=== PATIENT | female | born 1940 | race Caucasian/White ===

== ENCOUNTER 2018-06-02 08:30 | Day surgery (SDC) | payer MEDICARE, OTHER ==
[~2018-06-02] VITALS: Ht 157.5 cm; Wt 91.2 kg
[~2018-06-02 08:30] MED LIST: ACET500 PO; ALBU90OI; ALBU90OI6 INH; ALLO300 PO; AMIO200; AMLO5 PO; ATEN50; Bactrim 400-801 EACH PO; CALCA500CH PO; CALCAVITD PO; CHOL10002 PO; CLON.5; CREAM TOP; Cleocin HCl150 MG PO; DABI150C PO; DOC250; ENAL5; ESTR1; ESTRTP; FURO20 PO; GABA400; GLIP5; GLYMET5; HYDCHLSU PO; IBUP400 PO; INSDET100 SC; L-THYROXINE PO; LEVO750 PO; LEVSOD50; LEVSOD75 PO; LIDO5TP; Levemir Fl100 UNIT/M; MEROPENEM500 MG IV; Merrem500 MG IV; NEBI10 PO; NORT50; NORT75 PO; NYST100P TOP; Novolog100 UNIT/1 SC; OMEP20ER; OMEP20ER PO; PREG200 PO; PROACE100; SHORT ACTING INSULIN SC; SIMV10 PO; Senna8.6 MG PO; TORSE20; TORSE20 PO; TRAM50; VENL75ER; [UNRECOGNIZED DRUG - OTHER]
== END 2018-06-02 10:35 | disposition home or self-care (01) ==
LOC: ORSCSDS 08:30
PROVIDERS: Podiatrist Foot & Ankle Surgery
PROC: 0L8N0ZZ Division of Right Lower Leg Tendon, Open Approach (ICD-10-PCS; principal; 2018-06-02 10:00)
DX: M24.571 Contracture, right ankle (principal); E11.621 Type 2 diabetes mellitus with foot ulcer; I10 Essential (primary) hypertension; E11.9 Type 2 diabetes mellitus without complications; E03.9 Hypothyroidism, unspecified; Z79.899 Other long term (current) drug therapy
CPT/HCPCS: 82947; J0690; J1100; J2250; J2405; J2704; J3010; J7120

== ENCOUNTER 2019-02-01 04:28 | Emergency (ER) | payer MEDICARE, OTHER ==
[~2019-02-01] VITALS: Ht 160 cm; Wt 88.5 kg
[2019-02-01] MEDS ORDERED: ESCI10 PO (05:10)
[2019-02-01] MEDS ORDERED: ABAT250V (05:10)
[2019-02-01] MEDS ORDERED: DABI150C (05:12)
[2019-02-01 05:30] LABS: BASOPHILS ABSOLUTE AUTO 0.01 K/mm3 (0.00-0.23); BASOPHILS PERCENT AUTO 0 % (0-2); EOSINOPHILS ABSOLUTE AUTO 0.08 K/mm3 (0.00-0.68); EOSINOPHILS PERCENT AUTO 1 % (0-6); Hematocrit 40.2 % (33.0-51.0); Hemoglobin 12.5 g/dL (11.5-16.0); IMMATURE GRAN ABSOLUTE AUTO 0.03 K/mm3 (0.00-0.10); IMMATURE GRAN PERCENT AUTO 0 % (0-1); LYMPHOCYTES ABSOLUTE AUTO 1.39 K/mm3 (0.84-5.20); LYMPHOCYTES PERCENT AUTO 20 % (21-46); MONOCYTES ABSOLUTE AUTO 0.54 K/mm3 (0.16-1.47); MONOCYTES PERCENT AUTO 8 % (4-13); Mean Corpuscular HGB 28.6 pg (26.0-34.0); Mean Corpuscular HGB Conc 31.1 g/dL (31.5-36.5); Mean Corpuscular Volume 92 fL (80-100); Mean Platelet Volume 11.9 fL (9.1-12.4); NEUTROPHILS PERCENT AUTO 71 % (41-73); Platelet Count 266 K/mm3 (150-400); RDW Coefficient Variation 14.6 % (11.7-14.2); Red Blood Cell Count 4.37 M/mm3 (3.80-5.20); White Blood Cell Count 6.95 K/mm3 (4.00-11.30)
[2019-02-01 06:00] LABS: Alanine Aminotransfer (ALT/SGP 53 U/L (12-78); Albumin, Blood 3.2 g/dL (3.4-5.0); Albumin/Globulin Ratio 0.7 (0.8-1.8); Alk Phos 78 U/L (50-136); Anion Gap 6 mmol/L (6-16); Aspartate Aminotrans (AST/SGOT 83 U/L (12-37); Bilirubin, Total 0.4 mg/dL (0.1-1.0); Blood Urea Nitrogen 16 mg/dL (8-24); Bun/Creatinine Ratio 22.9 (12.0-20.0); CO2, Blood 24 mmol/L (21-32); Calcium, Blood 8.1 mg/dL (8.5-10.1); Chloride, Blood 108 mmol/L (98-108); Globulin, Blood 4.3 g/dL (2.2-4.0); Glomerular Filtration Rate >60 (60-); Glucose, Blood 171 mg/dL (70-99); Potassium, Blood 3.6 mmol/L (3.5-5.5); Sodium, Blood 138 mmol/L (136-145); Total Protein, Blood 7.5 g/dL (6.4-8.2)
[2019-02-01 07:56] LABS: Adenovirus F 40/41 Not Detected (NOT DETECT); Astrovirus Not Detected (NOT DETECT); Campylobacter Sp Not Detected (NOT DETECT); Cryptosporidium Not Detected (NOT DETECT); Cyclospora Cayetanensis Not Detected (NOT DETECT); E. Coli O157 Not Detected (NOT DETECT); Entamoeba Histolytica Not Detected (NOT DETECT); Enteroaggregative E. coli-EAEC Not Detected (NOT DETECT); Enteropathogenic E. coli-EPEC Not Detected (NOT DETECT); Enterotoxigenic E. coli-ETEC Not Detected (NOT DETECT); Giardia Lamblia Not Detected (NOT DETECT); Norovirus GI/GII Detected (NOT DETECT); Plesiomonas Shigelloides Not Detected (NOT DETECT); Rotavirus A Not Detected (NOT DETECT); Salmonella Sp Not Detected (NOT DETECT); Sapovirus Not Detected (NOT DETECT); Shiga Toxin-prod E. coli-STEC Not Detected (NOT DETECT); Shigella/Enteroin E. coli-EIEC Not Detected (NOT DETECT); Vibrio Cholerae Not Detected (NOT DETECT); Vibrio Sp Not Detected (NOT DETECT); Yersinia Enterocolitica Not Detected (NOT DETECT)
== END 2019-02-01 07:43 | disposition home or self-care (01) ==
LOC: ER 04:28
PROVIDERS: Emergency Medicine
DX: R19.7 Diarrhea, unspecified (principal); R10.9 Unspecified abdominal pain; E11.9 Type 2 diabetes mellitus without complications; I48.91 Unspecified atrial fibrillation; Z88.5 Allergy status to narcotic agent; Z88.8 Allergy status to other drugs, medicaments and biological substances; Z79.899 Other long term (current) drug therapy; Z79.4 Long term (current) use of insulin
CPT/HCPCS: 0097U; 36415; 80053; 82272; 83690; 85025; 93005; 93010; 99284-25

== ENCOUNTER → 2019-03-11 | Outpatient (CLI) | payer MEDICARE, OTHER ==
[~2019-03-11] MED LIST changes: +ABAT250V; +DABI150C; +ESCI10 PO
[2019-03-12 16:35] LABS: Adenovirus F 40/41 Not Detected (NOT DETECT); Astrovirus Not Detected (NOT DETECT); Campylobacter Sp Not Detected (NOT DETECT); Cryptosporidium Not Detected (NOT DETECT); Cyclospora Cayetanensis Not Detected (NOT DETECT); E. Coli O157 Not Detected (NOT DETECT); Entamoeba Histolytica Not Detected (NOT DETECT); Enteroaggregative E. coli-EAEC Not Detected (NOT DETECT); Enteropathogenic E. coli-EPEC Not Detected (NOT DETECT); Enterotoxigenic E. coli-ETEC Not Detected (NOT DETECT); Giardia Lamblia Not Detected (NOT DETECT); Norovirus GI/GII Not Detected (NOT DETECT); Plesiomonas Shigelloides Not Detected (NOT DETECT); Rotavirus A Not Detected (NOT DETECT); Salmonella Sp Not Detected (NOT DETECT); Sapovirus Not Detected (NOT DETECT); Shiga Toxin-prod E. coli-STEC Not Detected (NOT DETECT); Shigella/Enteroin E. coli-EIEC Not Detected (NOT DETECT); Vibrio Cholerae Not Detected (NOT DETECT); Vibrio Sp Not Detected (NOT DETECT); Yersinia Enterocolitica Not Detected (NOT DETECT)
== END | disposition home or self-care (01) ==
LOC: LAB 12:30 → LAB SHORT 12:30 → EDSTATUS 03-08 12:15 → LAB FUT 03-08 12:15
PROVIDERS: Internal Medicine
DX: R19.7 Diarrhea, unspecified (principal)
CPT/HCPCS: 0097U

== ENCOUNTER → 2019-11-28 | Outpatient (CLI) | payer MEDICARE, OTHER ==
[~2019-11-28] MED LIST changes: +ALBU90OI INH; +ELIQUIS5 M2 PO; +Novolin R100 UNIT/M SC; +PRAM.5 PO; +Vitamin D2000 UNIT PO
== END ==
LOC: LAB 16:01 → LAB SHORT 16:01
DX: D48.5 Neoplasm of uncertain behavior of skin (principal); L30.4 Erythema intertrigo; L21.8 Other seborrheic dermatitis; L08.9 Local infection of the skin and subcutaneous tissue, unspecified; L82.1 Other seborrheic keratosis; L81.4 Other melanin hyperpigmentation; D22.5 Melanocytic nevi of trunk; Z71.89 Other specified counseling
CPT/HCPCS: 87070; 87077; 87147; 87186; 87205

== ENCOUNTER → 2019-12-21 | Outpatient (CLI) | payer MEDICARE, OTHER | LOC: LAB SHORT 07:11 → PLD 07:11 | DX: R21 Rash and other nonspecific skin eruption (principal) | CPT/HCPCS: 88312 ==

== ENCOUNTER 2020-06-24 10:02 | Emergency (ER) | payer MEDICARE, OTHER ==
[~2020-06-24] VITALS: Ht 160 cm; Wt 91.6 kg
[~2020-06-24 10:02] MED LIST changes: +LEVEMIR100 UNIT/1 SC; -NEBI10 PO
[2020-06-24] MEDS ORDERED: ELIQUIS5 MG PO (10:44)
[2020-06-24] MEDS ORDERED: AMIT75 PO (10:48)
[2020-06-24] MEDS ORDERED: Amlodipine Bes2.5 MG PO (10:49)
[2020-06-24 11:12] LABS: BASOPHILS ABSOLUTE AUTO 0.05 K/mm3 (0.00-0.23); BASOPHILS PERCENT AUTO 0 % (0-2); EOSINOPHILS ABSOLUTE AUTO 0.23 K/mm3 (0.00-0.68); EOSINOPHILS PERCENT AUTO 2 % (0-6); Hematocrit 40.2 % (33.0-51.0); IMMATURE GRAN ABSOLUTE AUTO 0.08 K/mm3 (0.00-0.10); IMMATURE GRAN PERCENT AUTO 1 % (0-1); LYMPHOCYTES ABSOLUTE AUTO 1.61 K/mm3 (0.84-5.20); LYMPHOCYTES PERCENT AUTO 12 % (21-46); MONOCYTES ABSOLUTE AUTO 0.67 K/mm3 (0.16-1.47); MONOCYTES PERCENT AUTO 5 % (4-13); Mean Corpuscular HGB 31.9 pg (26.0-34.0); Mean Corpuscular HGB Conc 32.3 g/dL (31.5-36.5); Mean Corpuscular Volume 99 fL (80-100); Mean Platelet Volume 10.9 fL (9.1-12.4); NEUTROPHILS ABSOLUTE AUTO 11.14 K/mm3 (1.96-9.15); NEUTROPHILS PERCENT AUTO 81 % (41-73); Platelet Count 386 K/mm3 (150-400); RDW Coefficient Variation 14.1 % (11.7-14.2); RDW Standard Deviation 51.1 fL (35.1-46.3); Red Blood Cell Count 4.07 M/mm3 (3.80-5.20); White Blood Cell Count 13.78 K/mm3 (4.00-11.30)
[2020-06-24 11:37] LABS: Alanine Aminotransfer (ALT/SGP 19 U/L (12-78); Albumin, Blood 2.7 g/dL (3.4-5.0); Albumin/Globulin Ratio 0.5 (0.8-1.8); Alk Phos 118 U/L (50-136); Anion Gap 2 mmol/L (6-16); Aspartate Aminotrans (AST/SGOT 18 U/L (12-37); Bilirubin, Total 0.3 mg/dL (0.1-1.0); Blood Urea Nitrogen 22 mg/dL (8-24); Bun/Creatinine Ratio 22.1 (12.0-20.0); CO2, Blood 32 mmol/L (21-32); Calcium, Blood 8.6 mg/dL (8.5-10.1); Chloride, Blood 101 mmol/L (98-108); Globulin, Blood 5.6 g/dL (2.2-4.0); Glomerular Filtration Rate 57 (60-); Glucose, Blood 254 mg/dL (70-99); Potassium, Blood 4.7 mmol/L (3.5-5.5); Sodium, Blood 135 mmol/L (136-145); Total Protein, Blood 8.3 g/dL (6.4-8.2); Troponin I <0.015 ng/mL (0.000-0.040)
[2020-06-24] MEDS ORDERED: DOXY100 PO (12:20)
[2020-06-24] MEDS ORDERED: Mucinex600 MG PO (12:20)
== END 2020-06-24 12:33 | disposition home or self-care (01) ==
LOC: ER 10:02
PROVIDERS: Emergency Medicine
DX: R04.2 Hemoptysis (principal); Z79.4 Long term (current) use of insulin; Z79.01 Long term (current) use of anticoagulants; Z79.899 Other long term (current) drug therapy; Z88.5 Allergy status to narcotic agent; Z88.8 Allergy status to other drugs, medicaments and biological substances
CPT/HCPCS: 36415; 71045; 80053; 83880; 84484; 85025; 93005; 93010; 99284-25

== ENCOUNTER 2020-07-18 08:47 | Inpatient (IN) | payer MEDICARE, OTHER ==
[~2020-07-18] VITALS: Ht 160 cm; Wt 87.5 kg
[~2020-07-18 08:47] MED LIST changes: +AMIT75 PO; +Amlodipine Bes2.5 MG PO; +DOXY100 PO; +ELIQUIS5 MG PO; +Mucinex600 MG PO
[2020-07-18] MEDS ORDERED: LEVEMIR100 UNIT/1 SC (09:41)
[2020-07-18] MEDS ORDERED: NOVOLOG FL100 UNIT/3 SC (09:42)
[2020-07-18] MEDS ORDERED: ALBU90OI6 INH (09:44)
[2020-07-18] MEDS ORDERED: CHOLP PO (09:45)
[2020-07-18] MEDS ORDERED: PRAM.5 PO (09:57)
[2020-07-18] MEDS ORDERED: ESCI10 PO (09:59)
[2020-07-18] MEDS ORDERED: PRED20 PO (10:00)
[2020-07-18 10:11] LABS: BASOPHILS ABSOLUTE AUTO 0.04 K/mm3 (0.00-0.23); BASOPHILS PERCENT AUTO 0 % (0-2); EOSINOPHILS ABSOLUTE AUTO 0.21 K/mm3 (0.00-0.68); EOSINOPHILS PERCENT AUTO 1 % (0-6); Hematocrit 40.4 % (33.0-51.0); Hemoglobin 12.7 g/dL (11.5-16.0); IMMATURE GRAN ABSOLUTE AUTO 0.13 K/mm3 (0.00-0.10); IMMATURE GRAN PERCENT AUTO 1 % (0-1); LYMPHOCYTES ABSOLUTE AUTO 1.67 K/mm3 (0.84-5.20); LYMPHOCYTES PERCENT AUTO 11 % (21-46); MONOCYTES ABSOLUTE AUTO 1.12 K/mm3 (0.16-1.47); MONOCYTES PERCENT AUTO 8 % (4-13); Mean Corpuscular HGB 30.7 pg (26.0-34.0); Mean Corpuscular HGB Conc 31.4 g/dL (31.5-36.5); Mean Corpuscular Volume 98 fL (80-100); Mean Platelet Volume 11.1 fL (9.1-12.4); NEUTROPHILS ABSOLUTE AUTO 11.82 K/mm3 (1.96-9.15); NEUTROPHILS PERCENT AUTO 79 % (41-73); Platelet Count 559 K/mm3 (150-400); RDW Coefficient Variation 14.6 % (11.7-14.2); RDW Standard Deviation 53.3 fL (35.1-46.3); Red Blood Cell Count 4.14 M/mm3 (3.80-5.20); White Blood Cell Count 14.99 K/mm3 (4.00-11.30)
[2020-07-18 10:22] LABS: Albumin, Blood 1.9 g/dL (3.4-5.0); Albumin/Globulin Ratio 0.3 (0.8-1.8); Bilirubin, Total 0.5 mg/dL (0.1-1.0); Bun/Creatinine Ratio 20.2 (12.0-20.0); Calcium, Blood 8.9 mg/dL (8.5-10.1); Creatinine, Blood 1.04 mg/dL (0.40-1.00); Globulin, Blood 7.1 g/dL (2.2-4.0); Potassium, Blood 4.1 mmol/L (3.5-5.5)
[2020-07-18] MEDS ORDERED: NEBI10 PO (13:31)
[2020-07-18 15:58] LABS: SARS-Cov-2 (COVID-19) PCR, MMC NEGATIVE (NEGATIVE)
--- NOTE | 2020-07-18 18:12 | NUR ---
PATIENT IS ALERT AND ORIENTED AND COOPERATIVE WITH CARE. 1PA TO THE BATHROOM. ON 4L O2 VIA NC (BASELINE) HAS A POOR APPETITE TODAY, BG 87. INSULIN HELD TONIGHT. RT ASSESSED THE PATIENT. THE PATIENT FAMILY WAS HERE ON ADMISSION BUT HAVE GONE HOME. R/O CDIFF. PATIENT EDUCATED ON C-DIFF AND THAT A STOOL SAMPLE IS NEEDED. PATIENT HAS CHARCOT FOOT AND REQUIRES A LEFT FOOT BRACE WHICH IS WITH THE PATIENT. WILL CONTINUE TO MONITOR
[2020-07-18 21:41] LABS: C DIFFICILE DNA NEGATIVE (Negative)
--- NOTE | 2020-07-19 04:44 | NUR ---
SHIFT SUMMARY ASSUMED CARE OF PT AT 1900. PT IS A/OX4. HEART SOUNDS REGULAR, LUNG SOUNDS ARE COURSE AT THE BASES, PT IS ON 4L NC SATURATIONS REMAIN AT 91%. PT IS HAVING LOOSE DARK STOOLS. PT IS CONTINENT/ INCONTINENT. PT IS A 1P SBA TO COMMODE. 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 PT STATES THAT A DOCTOR WAS SUPPOSED TO TAKE THEM OUT TUESDAY BUT SHE MIGHT STILL BE HERE. CALL LIGHT IN REACH. BED IN LOWEST POSITION.
[2020-07-19 04:58] LABS: BASOPHILS ABSOLUTE AUTO 0.05 K/mm3 (0.00-0.23); BASOPHILS PERCENT AUTO 0 % (0-2); EOSINOPHILS ABSOLUTE AUTO 0.19 K/mm3 (0.00-0.68); EOSINOPHILS PERCENT AUTO 1 % (0-6); Hematocrit 34.7 % (33.0-51.0); IMMATURE GRAN ABSOLUTE AUTO 0.12 K/mm3 (0.00-0.10); IMMATURE GRAN PERCENT AUTO 1 % (0-1); LYMPHOCYTES ABSOLUTE AUTO 2.25 K/mm3 (0.84-5.20); LYMPHOCYTES PERCENT AUTO 15 % (21-46); MONOCYTES ABSOLUTE AUTO 1.12 K/mm3 (0.16-1.47); MONOCYTES PERCENT AUTO 7 % (4-13); Mean Corpuscular HGB 30.4 pg (26.0-34.0); Mean Corpuscular HGB Conc 31.7 g/dL (31.5-36.5); Mean Corpuscular Volume 96 fL (80-100); Mean Platelet Volume 10.6 fL (9.1-12.4); NEUTROPHILS ABSOLUTE AUTO 11.69 K/mm3 (1.96-9.15); NEUTROPHILS PERCENT AUTO 76 % (41-73); Platelet Count 507 K/mm3 (150-400); RDW Coefficient Variation 14.6 % (11.7-14.2); RDW Standard Deviation 50.8 fL (35.1-46.3); Red Blood Cell Count 3.62 M/mm3 (3.80-5.20); White Blood Cell Count 15.42 K/mm3 (4.00-11.30)
[2020-07-19 05:16] LABS: Albumin, Blood 1.7 g/dL (3.4-5.0); Albumin/Globulin Ratio 0.3 (0.8-1.8); Bilirubin, Total 0.4 mg/dL (0.1-1.0); Bun/Creatinine Ratio 19.6 (12.0-20.0); Calcium, Blood 8.5 mg/dL (8.5-10.1); Creatinine, Blood 0.97 mg/dL (0.40-1.00); Total Protein, Blood 7.7 g/dL (6.4-8.2)
[2020-07-19 13:59] LABS: Hematocrit 37.1 % (33.0-51.0); Hemoglobin 11.8 g/dL (11.5-16.0)
--- NOTE | 2020-07-19 18:40 | NUR ---
PATIENT A/OX4, UP WITH FWW AND SBA. CONTINENT/INCONINENT OF URINE/STOOL. DIARRHEA X1 THIS SHIFT, STOOL WAS DARK AND TARRY, GUAIAC ORDERED. PATIENT HAS SUTURES TO L BACK FROM SKIN CA REMOVAL, SUTURES TO BE D/C'D AT DERMATOLOGY OFFICE ON SATURDAY 07/22/. 2+ EDEMA TO BLE. 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 ROCEPHIN AND PO ZITHROMAX ORDERED TO TREAT INFECTION. 4LO2 TO MAINTAIN SATS, PATIENT ON 3-4LO2 AT BASELINE. PATIENT IS PLEASANT AND COOPERATIVE WITH CARE AND ABLE TO MAKE NEEDS KNOWN.
[2020-07-20 04:40] LABS: Hematocrit 38.5 % (33.0-51.0); Hemoglobin 11.9 g/dL (11.5-16.0); Mean Corpuscular HGB 30.2 pg (26.0-34.0); Mean Corpuscular HGB Conc 30.9 g/dL (31.5-36.5); Mean Corpuscular Volume 98 fL (80-100); Mean Platelet Volume 10.5 fL (9.1-12.4); Platelet Count 543 K/mm3 (150-400); RDW Coefficient Variation 14.6 % (11.7-14.2); RDW Standard Deviation 53.1 fL (35.1-46.3); Red Blood Cell Count 3.94 M/mm3 (3.80-5.20); White Blood Cell Count 17.52 K/mm3 (4.00-11.30)
--- NOTE | 2020-07-20 04:41 | NUR ---
SHIFT SUMMARY ASSUMED CARE OF PT AT 1900. PT IS A/OX4. HEART SOUNDS REGULAR, LUNG SOUNDS ARE MORE TIGHT WITH FINE CRACKLES T/O. RT HAD TO TURN PT OXYGEN UP TO 6L NC DUE TO SATURATIONS IN THE 80S. PT C/O COUGH AFTER BREATHING TREATMENT. COUGH IS NONPRODUCTIVE. PT IS A SBA TO BSC. PT WAS CONTINENT T/O THE NIGHT. PT C/O HEADACHE ONCE, TYLENOL GVEN PER EMAR. CALL LIGHT IN REACH, BED IN LOWEST POSITION.
[2020-07-20 04:57] LABS: Albumin, Blood 1.8 g/dL (3.4-5.0); Anion Gap 3 mmol/L (6-16); Blood Urea Nitrogen 21 mg/dL (8-24); Bun/Creatinine Ratio 20.4 (12.0-20.0); CO2, Blood 34 mmol/L (21-32); Calcium, Blood 8.7 mg/dL (8.5-10.1); Chloride, Blood 97 mmol/L (98-108); Creatinine, Blood 1.03 mg/dL (0.40-1.00); Glomerular Filtration Rate 55 (60-); Glucose, Blood 68 mg/dL (70-99); Phosphorus, Blood 3.6 mg/dL (2.5-4.9); Potassium, Blood 3.5 mmol/L (3.5-5.5); Sodium, Blood 134 mmol/L (136-145)
--- NOTE | 2020-07-20 18:11 | NUR ---
PATIENT A/OX4, PLEASANT AND COOPERATIVE WITH CARE. STARTED ON 6LO2 AND IS NOW MAINTAINING SATS ON 3LO2 WHICH IS HER BASELINE. DIARRHEA HAS STOPPED, ORDER TO SEND GUAIAC, C-DIFF NEGATIVE. VSS THIS SHIFT. TOELRATING DIET, ACHS BLOOD SUGARS, LONG ACTING D/C'D AND HUMALOG CHANGED TO SS. NO COVERAGE NEEDED THIS SHIFT. AMBULATES WITH FWW AND 1 ASSIST. TYLENOL GIVEN X1 FOR RIVERA WITH STATED RELIEF. PATIENT ABLE TO MAKE NEEDS KNOWN. PLAN IS TO DC HOME WHEN STABLE.
[2020-07-21 04:51] LABS: Hematocrit 36.8 % (33.0-51.0); Hemoglobin 11.5 g/dL (11.5-16.0); Mean Corpuscular HGB 30.5 pg (26.0-34.0); Mean Corpuscular HGB Conc 31.3 g/dL (31.5-36.5); Mean Corpuscular Volume 98 fL (80-100); Mean Platelet Volume 10.5 fL (9.1-12.4); Platelet Count 460 K/mm3 (150-400); RDW Coefficient Variation 14.7 % (11.7-14.2); RDW Standard Deviation 52.4 fL (35.1-46.3); Red Blood Cell Count 3.77 M/mm3 (3.80-5.20); White Blood Cell Count 13.06 K/mm3 (4.00-11.30)
[2020-07-21 05:15] LABS: Albumin, Blood 1.6 g/dL (3.4-5.0); Anion Gap 4 mmol/L (6-16); Blood Urea Nitrogen 21 mg/dL (8-24); Bun/Creatinine Ratio 23.7 (12.0-20.0); CO2, Blood 30 mmol/L (21-32); Calcium, Blood 8.5 mg/dL (8.5-10.1); Chloride, Blood 100 mmol/L (98-108); Creatinine, Blood 0.89 mg/dL (0.40-1.00); Glomerular Filtration Rate >60 (60-); Glucose, Blood 95 mg/dL (70-99); Phosphorus, Blood 3.6 mg/dL (2.5-4.9); Potassium, Blood 3.7 mmol/L (3.5-5.5); Sodium, Blood 134 mmol/L (136-145)
--- NOTE | 2020-07-21 06:48 | NUR ---
SUMMARY: PT A/OX4, CALLS APPROPRIATELY AND SPECIFIES NEEDS. SHE'S SBA TO BSC TO VOID AND IS PLEASANT/COOPERATIVE W/CARE. STAFF UNABLE TO OBTAIN STOOL SPECIMEN D/T NO BM THIS SHIFT. SHE REMAINS ON 3L HUMIDIFIED O2 VIA NC W/SPO2 WNL AND LUNG SOUNDS IMPROVING. TYLENOL RECIEVED X2 PRN FOR TOLERABLE RELIEF OF RIVERA AND LEG PAIN. BANDAID TO SUTURES ON BACK ARE C/D/I. PT TO HAVE THEM REMOVED BY/PCP ON BUT WILL HAVE DAY STAFF F/U IF PT IS STILL ADMITTED. NO ACUTE CHANGES, VSS/AFEBRILE. WCTM AND REPORT TO DAY RN.
--- NOTE | 2020-07-21 18:06 | NUR ---
SHIFT SUMMARY PATIENT MEDICATED X1 FOR FOOT PAIN AND HEADACHE. PATIENT DENIES NAUSEA AND SHORTNESS OF BREATH. OCCASSIONAL COUGH. UP SBA W/FWW TO BR. WORKED WITH PT TODAY. EATING AND DRINKING WELL. PLEASANT AND COOPERATIVE WITH CARE. GRANDDAUGHTER VISITED TODAY.
--- NOTE | 2020-07-21 19:20 | NUR ---
RECEIVED BEDSIDE REPORT FROM ANTONIO QUIROZ. PT SITTING IN CHAIR. RESP EVEN ON 3L. TELE IN PLACE. A/O. IMMOBILIZER BOOT ON LLE. USES FWW AND IS A SBA. PT USED FWW TO BATHROOM WITHOUT DIFFICULTY. STATES A LITTLE SOB DURING AMBULATION BUT NOTHING BAD. PT BACK TO BED. NO OTHER NEEDS AT THIS TIME. WILL PROVIDE CARE T/O SHIFT. CALL LT IN REACH.
--- NOTE | 2020-07-22 04:33 | NUR ---
SHIFT SUMMARY: A/O. SBA. ON 3L VIA NC WHICH IS PT'S BASELINE. LITTLE SOB DURING AMBULATION, NOT BAD PER PT. SINUS RHYTHM AT 76 ON TELE. TYLENOL GIVEN FOR 3/10 HEADACHE PAIN, STATES IT'S FROM COUGHING. TAKING PO AND VOIDING WELL. NO LOOSE STOOL. NO ACUTE CHANGES. WILL CONTINUE TO PROVIDE CARE UNTIL SHIFT REPORT. CALL LT IN REACH.
[2020-07-22] MEDS ORDERED: CEFD300 PO (12:39)
--- NOTE | 2020-07-22 13:41 | NUR ---
DISCHARGE PT DISCHARGED TO HOME. THIS RN EXPLAINED DISCHARGE INSTRUCTIONS AND MEDICATIONS TO PT AND SPOUSE. THEY REPORT THEY UNDERSTAND. IV REMOVED WITHOUT DIFFICULTY. PT TRANSFERRED TO PRIVATE VEHICLE VIA WHEELCHAIR. BELONGINGS WITH PT AND PT'S SPOUSE.
== END 2020-07-22 13:35 | disposition home health service (06) | DRG 871 ==
LOC: ER 08:47 → MEDS 13:04
PROVIDERS: Emergency Medicine; Internal Medicine; ADMIT Internal Medicine
DX: A41.9 Sepsis, unspecified organism (principal); J18.9 Pneumonia, unspecified organism; J96.21 Acute and chronic respiratory failure with hypoxia; I50.32 Chronic diastolic (congestive) heart failure; E87.1 Hypo-osmolality and hyponatremia; I48.20 Chronic atrial fibrillation, unspecified; Z20.822 Contact with and (suspected) exposure to COVID-19; Z66 Do not resuscitate; E03.9 Hypothyroidism, unspecified; E78.5 Hyperlipidemia, unspecified; Z88.5 Allergy status to narcotic agent; Z79.01 Long term (current) use of anticoagulants; G25.81 Restless legs syndrome; Z89.411 Acquired absence of right great toe; E11.42 Type 2 diabetes mellitus with diabetic polyneuropathy; I11.0 Hypertensive heart disease with heart failure; I35.1 Nonrheumatic aortic (valve) insufficiency; Z90.710 Acquired absence of both cervix and uterus; Z98.890 Other specified postprocedural states; Z79.899 Other long term (current) drug therapy; Z79.4 Long term (current) use of insulin; Z88.8 Allergy status to other drugs, medicaments and biological substances; E86.0 Dehydration; R19.7 Diarrhea, unspecified; K21.9 Gastro-esophageal reflux disease without esophagitis; M10.9 Gout, unspecified; F32.9 Major depressive disorder, single episode, unspecified
CPT/HCPCS: 36415; 71046; 80053; 80069; 82272; 82947; 83735; 83880; 84145; 85014; 85018; 85025; 85027; 87040; 87070; 87077; 87186; 87205; 87493; 94640; 94667; 94668; 94760; 96374; 97110; 97116; 97161; 99285-25; A9270; J0696; J1815; U0004

== ENCOUNTER 2021-03-19 07:38 | Day surgery (SDC) | payer MEDICARE, OTHER ==
[~2021-03-19] VITALS: Ht 157.5 cm; Wt 94.2 kg
[~2021-03-19 07:38] MED LIST changes: +Amoxicillin875 MG PO; +BACTRIM DS TAB1 EAC6 PO; +Bystolic10 MG PO; +CEFD300 PO; +CHOLESTYRAMI239.4 G1 PO; +CHOLP PO; +DESO.25TO; +FERSU300 PO; +FURO40 PO; +LEVEMIR FL100 UNIT/2; +MELATONIN1 M1 PO; +METO2.5 PO; +MUPIROCIN1 G1 TOP; +NEBI10 PO; +NOVOLOG FL100 UNIT/2; +NOVOLOG FL100 UNIT/3 SC; +NYSTOP15 GM TOP; +POTCHL20ER PO; +PRED20 PO; +PREDNICARBATE; +[UNRECOGNIZED DRUG - OTHER]
== END 2021-03-19 09:35 | disposition home or self-care (01) ==
LOC: ORSCSDS 07:38
PROVIDERS: Ophthalmology
PROC: 08RJ3JZ Replacement of Right Lens with Synthetic Substitute, Percutaneous Approach (ICD-10-PCS; principal; 2021-03-19 09:00)
DX: H25.12 Age-related nuclear cataract, left eye (principal); I10 Essential (primary) hypertension; J44.9 Chronic obstructive pulmonary disease, unspecified; K21.9 Gastro-esophageal reflux disease without esophagitis; E11.9 Type 2 diabetes mellitus without complications; E03.9 Hypothyroidism, unspecified; E66.9 Obesity, unspecified; Z79.899 Other long term (current) drug therapy
CPT/HCPCS: 82947; J2001; J2250; J3010; J3301; J7040; V2632

== ENCOUNTER 2021-04-09 07:35 | Day surgery (SDC) | payer MEDICARE, OTHER ==
[~2021-04-09] VITALS: Ht 160 cm; Wt 98.8 kg
== END 2021-04-09 09:28 | disposition home or self-care (01) ==
LOC: ORSCSDS 07:35
PROVIDERS: Ophthalmology
PROC: 08RJ3JZ Replacement of Right Lens with Synthetic Substitute, Percutaneous Approach (ICD-10-PCS; principal; 2021-04-09 09:00)
DX: H25.11 Age-related nuclear cataract, right eye (principal); I10 Essential (primary) hypertension; E11.9 Type 2 diabetes mellitus without complications; J44.9 Chronic obstructive pulmonary disease, unspecified; I25.10 Atherosclerotic heart disease of native coronary artery without angina pectoris; G47.33 Obstructive sleep apnea (adult) (pediatric); E66.01 Morbid (severe) obesity due to excess calories; Z68.37 Body mass index [BMI] 37.0-37.9, adult; Z79.899 Other long term (current) drug therapy; Z99.81 Dependence on supplemental oxygen
CPT/HCPCS: 82947; J2001; J2250; J3010; J3301; J7040; V2632

== ENCOUNTER → 2021-05-16 | Outpatient (CLI) | payer MEDICARE, OTHER ==
[2021-05-19 07:25] LABS: Adenovirus F 40/41 Not Detected (NOT DETECT); Astrovirus Not Detected (NOT DETECT); Campylobacter Sp Not Detected (NOT DETECT); Cryptosporidium Not Detected (NOT DETECT); Cyclospora Cayetanensis Not Detected (NOT DETECT); E. Coli O157 Not Detected (NOT DETECT); Entamoeba Histolytica Not Detected (NOT DETECT); Enteroaggregative E. coli-EAEC Not Detected (NOT DETECT); Enteropathogenic E. coli-EPEC Detected (NOT DETECT); Enterotoxigenic E. coli-ETEC Not Detected (NOT DETECT); Giardia Lamblia Not Detected (NOT DETECT); Norovirus GI/GII Not Detected (NOT DETECT); Plesiomonas Shigelloides Not Detected (NOT DETECT); Rotavirus A Not Detected (NOT DETECT); Salmonella Sp Not Detected (NOT DETECT); Sapovirus Not Detected (NOT DETECT); Shiga Toxin-prod E. coli-STEC Not Detected (NOT DETECT); Shigella/Enteroin E. coli-EIEC Not Detected (NOT DETECT); Vibrio Cholerae Not Detected (NOT DETECT); Vibrio Sp Not Detected (NOT DETECT); Yersinia Enterocolitica Not Detected (NOT DETECT)
== END | disposition home or self-care (01) ==
LOC: LAB SHORT 15:00
PROVIDERS: Physician Assistant Medical
DX: K52.9 Noninfective gastroenteritis and colitis, unspecified (principal)
CPT/HCPCS: 87507

== ENCOUNTER 2022-02-15 12:30 | Emergency (ER) | payer MEDICARE, OTHER ==
[~2022-02-15] VITALS: Ht 160 cm; Wt 86.2 kg
== END 2022-02-15 15:23 | disposition home or self-care (01) ==
LOC: ER 12:30
DX: S91.114A Laceration without foreign body of right lesser toe(s) without damage to nail, initial encounter (principal); S00.10XA Contusion of unspecified eyelid and periocular area, initial encounter; E11.9 Type 2 diabetes mellitus without complications; I48.91 Unspecified atrial fibrillation; Z88.5 Allergy status to narcotic agent; Z88.8 Allergy status to other drugs, medicaments and biological substances; Z79.4 Long term (current) use of insulin; Z79.899 Other long term (current) drug therapy; W19.XXXA Unspecified fall, initial encounter
CPT/HCPCS: 70450; 73660; J0690